=== PATIENT | female | born 1990 | race Caucasian/White ===

== ENCOUNTER 2020-04-12 10:37 | Emergency (ER) | payer OTHER ==
[~2020-04-12] VITALS: Ht 170.2 cm; Wt 101.2 kg
[2020-04-12 10:45] VITALS: BP 123/94
--- NOTE | 2020-04-12 10:45 | NUR ---
PT AMB TO BED 7.
--- NOTE | 2020-04-12 10:45 | NUR ---
Florencio ashford in [facility] - 04/12/20 at 1107 by [email or web address] PT AMB TO BED 6.
--- NOTE | 2020-04-12 11:22 | NUR ---
PT C/O VAGINAL BLEEDING. PT STATES SHE HAD SEXUAL INTERCOURSE 04/11/20 PM. SHE NOTICED SMALL BROWN CLOTS. PT IS NOT ACTIVELY BLEEDING. MILD ABD PAIN ON RT AND LT LOWER QUARDRANT. HCG+. PT STATES THIS IS HER FIRST . HER PRIMARY OBGYN STATES THAT SHE IS 11 WEEKS . LMP: 01/31/20 NO PMHX KORIN NKTALIB
--- NOTE | 2020-04-12 11:22 | NUR ---
US AT BEDSIDE
[2020-04-12 11:25] LABS: BASOPHILS % (AUTO) 0.5 % (0.0-2.0); EOSINOPHILS % (AUTO) 0.8 % (0.0-4.0); HEMOGLOBIN 12.4 g/dL (12.0-16.0); LYMPHOCYTES # (AUTO) 2.1 K/uL (2.5-16.5); LYMPHOCYTES % (AUTO) 36.9 % (20.5-51.1); MEAN CORPUSCULAR HEMOGLOBIN 29 pg (27-31); MEAN CORPUSCULAR HGB CONC 33 g/dL (33-37); MEAN CORPUSCULAR VOLUME 87.1 fL (80-94); MONOCYTES # (AUTO) 0.4 K/uL (0.8-1.0); MONOCYTES % (AUTO) 6.1 % (1.7-9.3); NEUTROPHILS # (AUTO) 3.2 K/uL (1.8-7.7); NEUTROPHILS % (AUTO) 55.7 % (42.2-75.2); PLATELET COUNT (AUTO) 247 K/uL (140-450); RED BLOOD CELL COUNT(AUTO) 4.25 MIL/uL (4.20-5.40); RED CELL DISTRIBUTION WIDTH 13.4 % (11.6-13.7); WHITE BLOOD COUNT (AUTO) 5.8 K/uL (4.8-10.8)
[2020-04-12 11:30] LABS: APPEARANCE,URINE CLEAR (CLEAR); BILIRUBIN,URINE NEGATIVE (NEGATIVE); BLOOD, URINE NEGATIVE (NEGATIVE); COLOR,URINE YELLOW (YELLOW); LEUKOCYTE ESTERASE ,URINE NEGATIVE (NEGATIVE); NITRITE, URINE NEGATIVE (NEGATIVE); UGLUCOSE NEGATIVE (NEGATIVE)
[2020-04-12 11:46] LABS: ALBUMIN 3.3 g/dL (3.4-5.0); ANION GAP 12.9 (8-16); CARBON DIOXIDE 26.6 mmol/L (21-32); CREATININE 0.7 mg/dL (0.6-1.3); POTASSIUM 3.5 mmol/L (3.5-5.1); TOTAL BILIRUBIN 0.5 mg/dL (0.0-1.0)
--- NOTE | 2020-04-12 12:24 | NUR ---
PT AWAKE AND RESTING IN BED. R/R EVEN AND UNLABORED.
--- NOTE | 2020-04-12 13:19 | NUR ---
DR MARAVILLA AT BEDSIDE SPEAKING WITH PATIENT
[2020-04-12 13:24] VITALS: BP 119/69
--- NOTE | 2020-04-12 13:24 | NUR ---
Patient discharged with v/s stable. Written and verbal after care instructions given and explained. Patient verbalized understanding. Ambulatory with steady gait. All questions addressed prior to discharge. Advised to follow up with PMD.
== END 2020-04-12 13:24 | disposition home or self-care (01) ==
LOC: MED 10:37
DX: O20.0 Threatened abortion (principal)
CPT/HCPCS: 36415; 76817; 80053; 81003; 81025; 84702; 85025; 86900; 86901; 99284; Q0092

== ENCOUNTER 2020-04-20 10:47 | Emergency (ER) | payer OTHER ==
[~2020-04-20] VITALS: Ht 170.2 cm; Wt 101.6 kg
[2020-04-20 10:54] VITALS: BP 88/48
[2020-04-20] MEDS ORDERED: NACL 0.9% 1,000 ML IV ONE (11:05)
[2020-04-20] MEDS ORDERED: METOCLOPRAMIDE 10 MG/2 ML INJ VIAL IVP ONE (11:05)
--- NOTE | 2020-04-20 11:27 | NUR ---
29 YO FEMALE CO +N/V/D, ABDOMINAL CRAMPING, AND VAGINAL BLEEDING X TODAY PT SEEN LAST WEEK FOR POSSIBLE MISCARRIAGE LMP January 1 PT ALSO 3 WITNESSED EPISODES OF SNYCOPE X TODAY PMH- DENIES
[2020-04-20 11:34] LABS: BASOPHILS % (AUTO) 0.3 % (0.0-2.0); EOSINOPHILS % (AUTO) 0.4 % (0.0-4.0); HEMATOCRIT 34.2 % (36-48); HEMOGLOBIN 11.5 g/dL (12.0-16.0); LYMPHOCYTES # (AUTO) 1.2 K/uL (2.5-16.5); MEAN CORPUSCULAR HEMOGLOBIN 29 pg (27-31); MEAN CORPUSCULAR HGB CONC 34 g/dL (33-37); MEAN CORPUSCULAR VOLUME 87.6 fL (80-94); MONOCYTES # (AUTO) 0.3 K/uL (0.8-1.0); MONOCYTES % (AUTO) 3.3 % (1.7-9.3); NEUTROPHILS # (AUTO) 7.8 K/uL (1.8-7.7); PLATELET COUNT (AUTO) 249 K/uL (140-450); RED CELL DISTRIBUTION WIDTH 13.4 % (11.6-13.7); WHITE BLOOD COUNT (AUTO) 9.4 K/uL (4.8-10.8)
[2020-04-20 11:51] LABS: ALBUMIN 3.3 g/dL (3.4-5.0); ANION GAP 9.6 (8-16); CARBON DIOXIDE 28.4 mmol/L (21-32); CREATININE 0.9 mg/dL (0.6-1.3); TOTAL BILIRUBIN 0.2 mg/dL (0.0-1.0)
--- NOTE | 2020-04-20 12:16 | NUR ---
Female [employer] (MYSELF) accompanied DR. MCKENZIE FOR female patient OB Pelvic Exam.
[2020-04-20 13:16] VITALS: BP 116/65
--- NOTE | 2020-04-20 13:18 | NUR ---
Patient discharged with v/s stable. Written and verbal after care instructions given and explained. Patient alert, oriented and verbalized understanding of instructions. Ambulatory with steady gait. All questions addressed prior to discharge. ID band removed. Patient advised to follow up with PMD. Rx of NAPROXEN AND REGLAN given. Patient educated on indication of medication including possible reaction and side effects. Opportunity to ask questions provided and answered.
== END 2020-04-20 13:18 | disposition home or self-care (01) ==
LOC: MED 10:47
DX: O03.9 Complete or unspecified spontaneous abortion without complication (principal); O26.51 Maternal hypotension syndrome, first trimester; O21.9 Vomiting of pregnancy, unspecified
CPT/HCPCS: 36415; 80053; 84702; 85025; 86900; 86901; 96361; 96374; 99283; J2765; J7030